=== PATIENT | female | born 1990 | race Two or more races ===

== ENCOUNTER 2019-08-10 19:39 | Emergency (ER) | payer SELFPAY ==
[2019-08-10 20:05] VITALS: BP 129/76
[2019-08-10] MEDS ORDERED: IBUPROFEN 800 MG TABLET PO ONE (21:05)
--- NOTE | 2019-08-10 21:06 | ER Document Report ---
ED Medical Screen (RME) - General Chief Complaint: Leg Injury Stated Complaint: FALL-RIGHT LEG AND ANKLE PAIN Time Seen by Provider: 08/10/19 21:03 Mode of Arrival: Wheelchair Information source: Patient Notes: This 28-year-old female presents emergency department with right knee pain right ankle pain. Reports she was hanging [place] lights last night while standing on a chair she over stepped and fell hurting her knee and her ankle. Reports pain since that time. Took Tylenol at midnight last night. Reports history of sports injuries to her knees. Right knee swollen right ankle swollen. I have greeted and performed a rapid initial assessment of this patient. A comprehensive ED assessment and evaluation of the patient, analysis of test results and completion of the medical decision making process will be conducted by additional ED providers. Dictation of this chart was performed using voice recognition software; therefore, there may be some unintended grammatical err ors. TRAVEL OUTSIDE OF THE [place] IN LAST 30 DAYS: No - Related Data Home Medications: DM II but no meds since recently moved here Past Medical History - Social History Chew tobacco use (# tins/day): No Frequency of alcohol use: None Physical Exam - Vital signs Vitals: Temp Pulse Resp BP Pulse Ox 99.1 F 105 H 18 129/76 H 98 08/10/19 20:04 08/10/19 20:04 08/10/19 20:04 08/10/19 20:04 08/10/19 20:04 Course - Vital Signs Vital signs: Temp Pulse Resp BP Pulse Ox 99.1 F 105 H 18 129/76 H 98 08/10/19 21:00 08/10/19 21:00 08/10/19 21:00 08/10/19 21:00 08/10/19 21:00
--- NOTE | 2019-08-10 22:02 | RADIOLOGY REPORT (SQ) ---
EXAM DESCRIPTION: XR ANKLE 3 OR MORE VIEWS COMPLETED DATE/TME: 08/10/2019 21:05 CLINICAL HISTORY: 28 years, Female, fell off chair knee and ankle pain, swelling COMPARISON: None. NUMBER OF VIEWS: 3 TECHNIQUE: 3 view right ankle LIMITATIONS: None. FINDINGS: Comminuted minimally displaced distal fibula fracture. Adjacent soft tissue swelling. No dislocation. No other fractures IMPRESSION: Mildly displaced distal fibular fracture as above copyright 2010 [employer]- All Rights Reserved
--- NOTE | 2019-08-10 22:07 | RADIOLOGY REPORT (SQ) ---
EXAM DESCRIPTION: XR KNEE 4 OR MORE VIEWS COMPLETED DATE/TME: 08/10/2019 21:05 CLINICAL HISTORY: 28 years, Female, fell off chair knee and ankle pain, swelling COMPARISON: None. NUMBER OF VIEWS: 4 TECHNIQUE: 4 view right knee LIMITATIONS: None. FINDINGS: Negative for fracture or dislocation. Soft tissues are unremarkable IMPRESSION: Negative exam copyright 2010 [employer]- All Rights Reserved
== END 2019-08-10 23:26 | disposition left against medical advice (07) ==
LOC: ER 19:39
DX: Z53.21 Procedure and treatment not carried out due to patient leaving prior to being seen by health care provider (principal); M25.571 Pain in right ankle and joints of right foot; M79.89 Other specified soft tissue disorders; W07.XXXA Fall from chair, initial encounter
CPT/HCPCS: 99281

== ENCOUNTER 2019-08-12 09:03 | Emergency (ER) | payer SELFPAY ==
--- NOTE | 2019-08-12 10:24 | ER Document Report ---
HPI - HPI Time Seen by Provider: 08/12/19 10:11 Pain Level: 2 Notes: 28-year-old female presents to the emergency room for official reads for her right knee x-ray and right ankle x-ray after she sustained a fall on August 09 and fell off the chair, she could not wait for the reason she is back today for the results. Knee x-ray is normal, right ankle x-ray shows a comminuted minimally displaced distal tibial fracture. Patient patient states her pain is 4 out of 10, throbbing achy. Has tried elevation [id number] Tylenol without relief. Denies any fevers or chills. Denies fevers, chills, chest pain,palpitations, shortness of breath, dyspnea, nausea, vomiting, diarrhea, abdominal pain, hematuria,blurred vision, double vision, loss of vision, speech changes, LH, dizziness, syncope, headaches, wheezing, ST, URI, neck pain, weakness, bowel or bladder dysfunction, saddle anesthesia, numbness or tingling in bilateral upper or lower extremities equally, muscle paralysis, weakness in bilateral upper or lower extremities equally or rash. - REPRODUCTIVE Reproductive: DENIES: : Past Medical History - General Information source: Patient - Social History Smoking Status: Current Every Day Smoker Family History: Reviewed & Not Pertinent Patient has suicidal ideation: No Patient has homicidal ideation: No Vertical Provider Document - CONSTITUTIONAL Agree With Documented VS: Yes Exam Limitations: No Limitations General Appearance: WD/WN Notes: PHYSICAL EXAMINATION: reviewed vital signs by RN GENERAL: Well-appearing, well-nourished and in no acute distress. HEAD: Atraumatic, normocephalic. EYES: Pupils equal round and reactive to light, extraocular movements intact, conjunctiva are normal. ENT: Nares patent, oropharynx clear without exudates. Moist mucous membranes. NECK: Normal range of motion, supple without lymphadenopathy LUNGS: Breath sounds clear to auscultation bilaterally and equal. No wheezes rales or rhonchi. HEART: Regular rate and rhythm without murmurs ABDOMEN: Soft, nontender, nondistended abdomen. No guarding, no rebound. No masses appreciated. Female : deferred Musculoskeletal: Normal range of motion, no pitting or edema. No cyanosis. right ankle with swelling, tenderness on lateral aspect of ankle. pain with inversion. squeeze test negative. dtr +2 BLE. Limited APROM. distal pulses + 2 BLE equally. Full motor and sensory function of bilateral lower extremities. No noted open wounds or abrasion. Normal gait. No vascular compromise. Peroneal nerve is intact with strong eversion and plantar flexion. Negative anterior drawer test. NEUROLOGICAL: Cranial nerves grossly intact. Normal speech, normal gait. Normal sensory, motor exams PSYCH: Normal mood, normal affect. SKIN: Warm, Dry, normal turgor, no rashes or lesions noted. - INFECTION CONTROL TRAVEL OUTSIDE OF THE [place] IN LAST 30 DAYS: No Course - Re-evaluation Re-evalutation: 08/12/19 10:18 Afebrile vital stable no distress. Nurse's notes reviewed. X-ray of right ankle showed a comminuted minimally displaced distal fibular fracture. Patient placed in a short posterior splint as well as given crutches. Discussed signs and symptoms of compartment syndrome and following up with treatment specialist for casting. Patient advised to keep elevated, take naproxen as needed for pain.. Do not get cast wet. All questions concerns answered by this provider. Consent by patient given to place short posterior splint,. cms intact, sensory motor function intact in bilateral lower extremities prior to splint application fiberglass splint placed without incident. cms intact 20 minutes after splint application. Splint is in good alignment. Bilateral lower extremities with motor and sensory function intact 20 minutes after application. Pt stated that splint felt comfortable. At this time, I do not see an indication for labs or further imaging. Will discharge with conservative measures, return precautions, and follow-up recommendations. After performing a Medical Screening Examination, I estimate there is LOW risk for OPEN FRACTURE, COMPARTMENT SYNDROME, DEEP VENOUS THROMBOSIS, ACUTE TENDON RUPTURE, or NEUROVASCULAR INJURY thus I consider the discharge disposition reasonable. I have reevaluated this patient multiple times and no significant life threatening changes are noted. The patient and I have discussed the diagnosis and risks, and we agree with discharging home to closely follow-up with their primary doctor or the referral orthopedist with the understanding that symptoms and presentations can change. We also discussed returning to the Emergency Department immediately if new or worsening symptoms occur. We have discussed the symptoms which are most concerning (e.g., changing or worsening pain, numbness, weakness) that necessitate immediate return 08/12/19 11:47 - Vital Signs Vital signs: Temp Pulse Resp BP Pulse Ox 98.8 F 98 17 140/86 H 97 08/12/19 09:13 08/12/19 09:13 08/12/19 09:13 08/12/19 09:13 08/12/19 09:13 Discharge - Discharge Clinical Impression: Right fibular fracture Qualifiers: Encounter type: initial encounter Fibula location: distal Fracture type: closed Fracture morphology: unspecified fracture morphology Qualified Code(s): S82.831A - Other fracture of upper and lower end of right fibula, initial encounter for closed fracture Condition: Stable Disposition: HOME, SELF-CARE Instructions: Fractured Ankle (Bimalleolar) ([facility]), Splint Precautions ([facility]), Temporary Splint ([facility]), Splint Pending Casting ([facility]), Use of Crutches ([facility]) Additional Instructions: Your x-ray showed that you had a comminuted minimally displaced distal fibula fracture. Prescriptions: Naproxen 500 mg PO BID #10 tablet Forms: Return to Work Referrals: LAURENCE WORKMAN MD [ACTIVE STAFF] - Follow up as needed MEERA STEELE MD [COMMUNITY BASED STAFF] - Follow up as needed
[2019-08-12 11:20] VITALS: BP 120/78
== END 2019-08-12 11:20 | disposition home or self-care (01) ==
LOC: ER 09:03
DX: M79.661 Pain in right lower leg (principal); S82.831A Other fracture of upper and lower end of right fibula, initial encounter for closed fracture; W07.XXXA Fall from chair, initial encounter; F17.200 Nicotine dependence, unspecified, uncomplicated
CPT/HCPCS: 99283

== ENCOUNTER 2019-08-18 05:22 | Day surgery (SDC) | payer SELFPAY ==
[~2019-08-18 05:22] MED LIST: CEFAZOLIN SODIUM 2 GM in DEXTROSE 5%-WATER 100 ML IV SCH
[2019-08-18 05:59] LABS: APPEARANCE,URINE CLEAR; BILIRUBIN,URINE NEGATIVE (NEGATIVE); COLOR,URINE YELLOW; GLUCOSE, URINE NEGATIVE (NEGATIVE); KETONES,URINE NEGATIVE (NEGATIVE); LEUKOCYTE ESTERASE,URINE NEGATIVE (NEGATIVE); NITRITE,URINE NEGATIVE (NEGATIVE); PROTEIN,URINE NEGATIVE (NEGATIVE); URINE SPECIFIC GRAVITY 1.015; UROBILINOGEN,URINE NEGATIVE mg/dL (<2.0)
[2019-08-18 06:19] LABS: HEMATOCRIT 37.5 % (36.0-47.0); HEMOGLOBIN 12.7 g/dL (12.0-15.5); MEAN CORPUSCULAR HEMOGLOBIN 28.9 pg (27.0-33.4); MEAN CORPUSCULAR HGB CONC 33.8 g/dL (32.0-36.0); MEAN CORPUSCULAR VOLUME 86 fl (80-97); PLATELET COUNT 218 10^3/uL (150-450); RED BLOOD COUNT 4.38 10^6/uL (3.72-5.28); RED CELL DISTRIBUTION WIDTH 14.7 % (11.5-14.0)
[2019-08-18 06:38] LABS: ANION GAP 7 (5-19); BLOOD UREA NITROGEN 11 mg/dL (7-20); CARBON DIOXIDE 25 mmol/L (22-30); CHLORIDE 106 mmol/L (98-107); GLUCOSE 222 mg/dL (75-110); POTASSIUM 4.1 mmol/L (3.6-5.0)
[2019-08-18] MEDS ORDERED: FENTANYL CITRATE INJ/PF 100 MCG/2 ML AMPUL ONE ×3 (06:53→08:41)
[2019-08-18] MEDS ORDERED: MIDAZOLAM 2 MG/2 ML INJ ONE (06:53)
[2019-08-18] MEDS ORDERED: PROPOFOL INJ 200 MG/20 ML VIAL IV ONE (06:53)
[2019-08-18] MEDS ORDERED: ALBUTEROL SULFATE 0.083% NEB 2.5 MG/3 ML AMPUL NEB ONE (07:02)
[2019-08-18] MEDS ORDERED: METOCLOPRAMIDE HCL INJ/PF 10 MG/2 ML SDV ONE (07:03)
[2019-08-18] MEDS ORDERED: FAMOTIDINE INJ/PF 20 MG/2 ML SDV IV ONE (07:03)
[2019-08-18] MEDS ORDERED: LIDOCAINE 2% INJ (20 MG/ML) 20 ML MDV ONE (07:05)
[2019-08-18] MEDS ORDERED: MORPHINE SULFATE 10 MG/ML INJ IV PRN (07:44)
[2019-08-18] MEDS ORDERED: DIPHENHYDRAMINE HCL 50 MG/ML VIAL IV PRN (07:44)
[2019-08-18] MEDS ORDERED: OXYCODONE-ACETAMINOPHEN 5-325 MG TABLET PO PRN ×2 (07:44)
[2019-08-18] MEDS ORDERED: FENTANYL CITRATE INJ/PF 100 MCG/2 ML AMPUL IV PRN ×3 (07:44)
[2019-08-18] MEDS ORDERED: MEPERIDINE HCL/PF INJ 25 MG/1 ML DISP.SYRIN IV PRN (07:44)
[2019-08-18] MEDS ORDERED: ONDANSETRON HCL INJ/PF 4 MG/2 ML SDV IV PRN (07:44)
--- NOTE | 2019-08-18 08:12 | Discharge Summary ---
Discharge Summary (SDC) - Discharge Final Diagnosis: Right lateral malleolus fracture Date of Surgery: 08/18/19 Discharge Date: 08/18/19 Condition: Good Treatment or Instructions: Touchdown weightbearing restriction right lower extremity Prescriptions: Oxycodone HCl/Acetaminophen [Percocet 5-325 mg Tablet] 1 tab PO Q6 PRN #24 tablet PRN Reason: Discharge Diet: Regular Respiratory Treatments at Home: Deep Breathing/Coughing Discharge Activity: Balance Activity w/Rest, Keep Legs Elevated, No tub bath Home Care Assistance: None Needed Adaptive Devices on Discharge: Axillary Crutches Report the Following to Your Physician Immediately: Shortness of Breath, Fever over 101 Degrees, Drainage-Foul Smelling
--- NOTE | 2019-08-18 08:13 | Operative Report ---
Operative Report DATE OF SURGERY: 08/18/19 PREOPERATIVE DIAGNOSIS: Right lateral malleolus fracture OPERATION: Open reduction internal fixation right lateral malleolus fracture SURGEON: LAURENCE WORKMAN ANESTHESIA: GA ESTIMATED BLOOD LOSS: 20 PROCEDURE: With the patient supine and operative table the right lower extremities prepped and draped in sterile fashion. Limb is elevated for exsanguination tourniquet inflated 280 torr. Longitudinal incision was made over the distal fibula and the underlying fracture is identified. Its reduced using a tenaculum. Subsequently a short titanium [place] distal fibular plate is applied to the lateral surface of the fibula and secured with 3 screws proximally and 4 screws distally. Fracture reduction and hardware placement checked fluoroscopically an d felt to be adequate. Tourniquet is deflated. Wound is irrigated with bulb lavage. Wound is closed interrupted Vicryl followed by glenda. A sterile compressive dressing and posterior plaster splint were applied and the patient is returned to the PACU in satisfactory condition.
[2019-08-18] MEDS ORDERED: HYDROMORPHONE HCL INJ/PF 2 MG/ML AMPULE ONE (08:23)
[2019-08-18] MEDS ORDERED: ACETAMINOPHEN 1,000 MG/100 ML RTUPB IV ONE (08:37)
--- NOTE | 2019-08-18 09:04 | RADIOLOGY REPORT (SQ) ---
EXAM DESCRIPTION: ANKLE RIGHT AP/LATERAL; NO CHG FLUORO COMPLETED DATE/TIME: 08/18/2019 8:29 am; 08/18/2019 8:28 am REASON FOR STUDY: ORIF RIGHT ANKLE ASST WITH FLUORO IN OR S82.61XA DISP FX OF LATERAL MALLEOLUS OF RIGHT FIBULA, INIT COMPARISON: Right ankle three views 08/10/2019 FLUOROSCOPY TIME: Less than 5 seconds 2 digital fluoroscopic images saved to PACS. TECHNIQUE: Intra-operative images acquired during surgical procedure to evaluate progress. NUMBER OF IMAGES: 2 digital fluoroscopic images LIMITATIONS: None. FINDINGS: Digital C-arm images during ORIF right distal fibular fracture. Please see the operative report for further details IMPRESSION: IMAGE(S) OBTAINED DURING PROCEDURE. COMMENT: Quality ID [id number]: Final reports for procedures using fluoroscopy that document radiation exp osure indices, or exposure time and number of fluorographic images (if radiation exposure indices are not available) Please consult full operative report of the attending physician for description of the procedure. TECHNICAL DOCUMENTATION: JOB ID: [id number] [email or web address]- All Rights Reserved Reading location - IP/workstation name: [email or web address]
--- NOTE | 2019-08-18 09:04 | RADIOLOGY REPORT (SQ) ---
EXAM DESCRIPTION: ANKLE RIGHT AP/LATERAL; NO CHG FLUORO COMPLETED DATE/TIME: 08/18/2019 8:29 am; 08/18/2019 8:28 am REASON FOR STUDY: ORIF RIGHT ANKLE ASST WITH FLUORO IN OR S82.61XA DISP FX OF LATERAL MALLEOLUS OF RIGHT FIBULA, INIT COMPARISON: Right ankle three views 08/10/2019 FLUOROSCOPY TIME: Less than 5 seconds 2 digital fluoroscopic images saved to PACS. TECHNIQUE: Intra-operative images acquired during surgical procedure to evaluate progress. NUMBER OF IMAGES: 2 digital fluoroscopic images LIMITATIONS: None. FINDINGS: Digital C-arm images during ORIF right distal fibular fracture. Please see the operative report for further details IMPRESSION: IMAGE(S) OBTAINED DURING PROCEDURE. COMMENT: Quality ID [id number]: Final reports for procedures using fluoroscopy that document radiation exp osure indices, or exposure time and number of fluorographic images (if radiation exposure indices are not available) Please consult full operative report of the attending physician for description of the procedure. TECHNICAL DOCUMENTATION: JOB ID: [id number] [employer]- All Rights Reserved Reading location - IP/workstation name: [email or web address]
[2019-08-18] MEDS ORDERED: OXYCODONE-ACETAMINOPHEN 5-325 MG TABLET ONE (10:19)
[2019-08-18 11:24] VITALS: BP 123/80
[2019-08-18] MEDS ORDERED: KETOROLAC TROMETHAMINE 60 MG/2 ML SDV ONE (14:29)
[2019-08-18] MEDS ORDERED: SUCCINYLCHOLINE CHLORIDE INJ 200 MG/10 ML VIAL ONE (14:29)
[2019-08-18] MEDS ORDERED: ROCURONIUM BROMIDE INJ 50 MG/5 ML VIAL IV ONE (14:29)
[2019-08-18] MEDS ORDERED: ONDANSETRON HCL INJ/PF 4 MG/2 ML SDV ONE (14:29)
[2019-08-18] MEDS ORDERED: DEXAMETHASONE SOD PHOSPHATE INJ 4 MG/1 ML VIAL ONE (14:29)
== END 2019-08-18 11:25 | disposition home or self-care (01) ==
LOC: OROUT 05:22
PROVIDERS: ATTEND Orthopaedic Surgery
DX: S82.61XA Displaced fracture of lateral malleolus of right fibula, initial encounter for closed fracture (principal); W07.XXXA Fall from chair, initial encounter; Y92.009 Unspecified place in unspecified non-institutional (private) residence as the place of occurrence of the external cause; Z79.84 Long term (current) use of oral hypoglycemic drugs; E11.9 Type 2 diabetes mellitus without complications; F17.210 Nicotine dependence, cigarettes, uncomplicated; E66.9 Obesity, unspecified; Z68.41 Body mass index [BMI] 40.0-44.9, adult
CPT/HCPCS: 36415; 82962; 85027; 81025; 80048; 81001; 73600; 01480; 27792; C1713 ×5; J2250; J3490 ×2; J0690; J1100; J1885; J3010; J2765; J1170; J0330; J2405; J7060; J2704; S0028; J0131